=== PATIENT | male | born 1940 ===

== ENCOUNTER → 2017-02-07 | Outpatient (CLI) | payer OTHER ==
--- NOTE | 2017-02-07 13:59 | DI ---
MRI BRAIN SCAN WITHOUT CONTRAST, 02/07/2017 12:41 PM: Clinical History: Dementia. Previous Exam: None at this facility. Sequences: Sagittal T1; Axial LILI T2 and FLAIR. Axial diffusion weighted images with ADC mapping were also performed. The fourth ventricle is of normal size, shape, position and contour. The third and lateral ventricles are moderately dilated but are otherwise normal. There are multiple punctate periventricular white m atter hyperintensities bilaterally that extend into the watershed territory, consistent with small ve ssel ischemic disease. This amount of ischemic disease is appropriate for the patient's age. Diffusio n weighted imaging with ADC mapping is normal. There is mild cerebellar and severe cerebral atrophy. There are no extracerebral mantels or shift of the midline structures. The paranasal sinuses are norm al. Readin. There is no evidence of an acute hemorrhagic or bland infarct. 2. Small vessel ischemic disease. 3. Mild cerebellar and severe cerebral atrophy. 4. Diffusion weighted imaging with ADC mapping is normal.
== END ==
LOC: MRI 12:33
PROVIDERS: ATTEND Family Medicine
DX: F03.90 Unspecified dementia, unspecified severity, without behavioral disturbance, psychotic disturbance, mood disturbance, and anxiety (principal); I99.8 Other disorder of circulatory system; G31.89 Other specified degenerative diseases of nervous system
CPT/HCPCS: 70551